=== PATIENT | male | born 1995 | race Caucasian/White ===

== ENCOUNTER 2018-01-14 21:55 | Inpatient (IN) | payer OTHER ==
[2018-01-14] MEDS ORDERED: HYDROMORPHONE HCL INJ/PF 2 MG/ML AMPULE IV PRN (22:02)
[2018-01-14] MEDS ORDERED: RINGERS SOLUTION,LACTATED 1,000 ML IV ONE (22:03)
[2018-01-14] MEDS ORDERED: CEFAZOLIN 2 GM/D5W RTU 2 GM/50 ML RTUPB IV ONE (22:03)
[2018-01-14] MEDS ORDERED: KETAMINE HCL INJ 500 MG/10 ML VIAL IV ONE ×2 (22:05→22:59)
[2018-01-14] MEDS ORDERED: METOCLOPRAMIDE HCL INJ/PF 10 MG/2 ML SDV IV ONE (22:06)
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
[2018-01-14 22:15] LABS: ABSOLUTE LYMPHOCYTES (AUTO) 2.1 10^3/uL (0.5-4.7); ABSOLUTE MONOCYTES (AUTO) 0.9 10^3/uL (0.1-1.4); ABSOLUTE NEUT (AUTO) 14.5 10^3/uL (1.7-8.2); BASOPHILS % (AUTO) 0.2 % (0-2); EOSINOPHILS % (AUTO) 0.1 % (0-6); HEMATOCRIT 43.5 % (37.9-51.0); HEMOGLOBIN 15.4 g/dL (13.5-17.0); LYMPHOCYTES % (AUTO) 11.8 % (13-45); MEAN CORPUSCULAR HEMOGLOBIN 31.9 pg (27.0-33.4); MEAN CORPUSCULAR HGB CONC 35.3 g/dL (32.0-36.0); MEAN CORPUSCULAR VOLUME 90 fl (80-97); MONOCYTES % (AUTO) 5.3 % (3-13); PLATELET COUNT 292 10^3/uL (150-450); RED BLOOD COUNT 4.82 10^6/uL (4.35-5.55); RED CELL DISTRIBUTION WIDTH 12.6 % (11.5-14.0); SEGMENTED NEUTROPHILS % (AUTO) 82.6 % (42-78); TOTAL CELLS COUNTED % (AUTO) 100 %; WHITE BLOOD COUNT 17.6 10^3/uL (4.0-10.5)
[2018-01-14 22:42] LABS: ANION GAP 19 (5-19); BLOOD UREA NITROGEN 16 mg/dL (7-20); CALCIUM 10.5 mg/dL (8.4-10.2); CARBON DIOXIDE 24 mmol/L (22-30); CHLORIDE 100 mmol/L (98-107); GLUCOSE 93 mg/dL (75-110); POTASSIUM 3.3 mmol/L (3.6-5.0)
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
[2018-01-14] MEDS ORDERED: ONDANSETRON HCL INJ/PF 4 MG/2 ML SDV IV PRN (23:07)
[2018-01-15] MEDS: OXYCODONE-ACETAMINOPHEN 5-325 MG TABLET PO PRN ×3 (01:15→18:18)
[2018-01-15] MEDS: MORPHINE SULFATE 10 MG/ML INJ IV PRN ×5 (02:34→20:17)
[2018-01-15] MEDS: RINGERS SOLUTION,LACTATED 1,000 ML IV PRN (05:35)
[2018-01-15 06:26] LABS: HEMATOCRIT 37.9 % (37.9-51.0); HEMOGLOBIN 13.5 g/dL (13.5-17.0); MEAN CORPUSCULAR HEMOGLOBIN 32.2 pg (27.0-33.4); MEAN CORPUSCULAR HGB CONC 35.6 g/dL (32.0-36.0); MEAN CORPUSCULAR VOLUME 90 fl (80-97); PLATELET COUNT 181 10^3/uL (150-450); RED BLOOD COUNT 4.19 10^6/uL (4.35-5.55); RED CELL DISTRIBUTION WIDTH 12.4 % (11.5-14.0); WHITE BLOOD COUNT 8.8 10^3/uL (4.0-10.5)
[2018-01-15 07:12] LABS: ANION GAP 10 (5-19); BLOOD UREA NITROGEN 16 mg/dL (7-20); CALCIUM 9.1 mg/dL (8.4-10.2); CARBON DIOXIDE 30 mmol/L (22-30); CHLORIDE 101 mmol/L (98-107); GLUCOSE 92 mg/dL (75-110); SODIUM 140.7 mmol/L (137-145)
[2018-01-15] MEDS ORDERED: MIDAZOLAM 2 MG/2 ML INJ ONE (07:57)
[2018-01-15] MEDS ORDERED: PROPOFOL INJ 200 MG/20 ML VIAL IV ONE (07:57)
[2018-01-15] MEDS ORDERED: ACETAMINOPHEN 1,000 MG/100 ML RTUPB IV ONE ×2 (07:57→18:50)
[2018-01-15] MEDS ORDERED: FENTANYL CITRATE INJ/PF 250 MCG/5 ML AMPULE ONE (07:57)
[2018-01-15] MEDS ORDERED: HYDROMORPHONE HCL INJ/PF 2 MG/ML AMPULE ONE ×2 (07:58→12:20)
[2018-01-15] MEDS ORDERED: CEFAZOLIN 2 GM/D5W RTU 2 GM/50 ML RTUPB IV SCH (08:00)
[2018-01-15] MEDS: CEFAZOLIN SODIUM 2 GM in NORMAL SALINE 100 ML IV SCH ×3 (08:24→20:16)
[2018-01-15] MEDS ORDERED: FENTANYL CITRATE INJ/PF 100 MCG/2 ML AMPUL ONE (08:49)
[2018-01-15] MEDS ORDERED: MORPHINE SULFATE 10 MG/ML INJ IV ONE (09:00)
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
[2018-01-15] MEDS ORDERED: CEFAZOLIN INJ 1 GM VIAL ONE (10:21)
[2018-01-15] MEDS ORDERED: OXYCODONE-ACETAMINOPHEN 5-325 MG TABLET PO PRN ×2 (11:05)
[2018-01-15] MEDS ORDERED: FENTANYL CITRATE INJ/PF 100 MCG/2 ML AMPUL IV PRN ×3 (11:05)
[2018-01-15] MEDS ORDERED: MORPHINE SULFATE 10 MG/ML INJ IV PRN (11:05)
[2018-01-15] MEDS ORDERED: MEPERIDINE HCL/PF INJ 25 MG/1 ML DISP.SYRIN IV PRN (11:05)
[2018-01-15] MEDS ORDERED: PROMETHAZINE HCL INJ 25 MG/1 ML VIAL IV PRN ×2 (11:05)
[2018-01-15] MEDS ORDERED: DIPHENHYDRAMINE HCL 50 MG/ML VIAL IV PRN (11:05)
[2018-01-15] MEDS: BUPIVACAINE HCL 0.5 % INJ/PF 30 ML SDV ONE ×2 (11:48→12:01)
[2018-01-15] MEDS ORDERED: KETOROLAC TROMETHAMINE 60 MG/2 ML SDV ONE (12:20)
[2018-01-15] MEDS ORDERED: PROMETHAZINE HCL INJ 25 MG/1 ML VIAL ONE (12:20)
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
[2018-01-15] MEDS ORDERED: ONDANSETRON 4 MG TAB.RAPDIS PO PRN (12:50)
[2018-01-15] MEDS ORDERED: MORPHINE SULFATE 10 MG/ML INJ ONE (13:10)
[2018-01-15] MEDS ORDERED: OXYCODONE-ACETAMINOPHEN 5-325 MG TABLET ONE (13:10)
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
[2018-01-15] MEDS ORDERED: SUCCINYLCHOLINE CHLORIDE INJ 200 MG/10 ML VIAL ONE (16:12)
[2018-01-15] MEDS ORDERED: DEXAMETHASONE SOD PHOSPHATE INJ 4 MG/1 ML VIAL ONE (16:12)
[2018-01-15] MEDS ORDERED: ONDANSETRON HCL INJ/PF 4 MG/2 ML SDV ONE (16:12)
[2018-01-15] MEDS: PREGABALIN 75 MG CAPSULE PO SCH (17:17)
[2018-01-15] MEDS: DIPHENHYDRAMINE HCL 50 MG/ML VIAL IV PRN (17:17)
[2018-01-15] MEDS ORDERED: OXYCODONE HCL SR 10 MG TABLET PO SCH (22:00)
[2018-01-16] MEDS: RINGERS SOLUTION,LACTATED 1,000 ML IV PRN (01:14)
[2018-01-16] MEDS: MORPHINE SULFATE 10 MG/ML INJ IV PRN ×2 (01:14→06:30)
[2018-01-16] MEDS: OXYCODONE HCL IR 5 MG TABLET PO PRN ×5 (02:37→23:08)
[2018-01-16] MEDS: CEFAZOLIN SODIUM 2 GM in NORMAL SALINE 100 ML IV SCH ×4 (02:38→22:12)
[2018-01-16] MEDS: OXYCODONE-ACETAMINOPHEN 5-325 MG TABLET PO PRN ×3 (04:21→17:20)
[2018-01-16] MEDS ORDERED: LANSOPRAZOLE 30 MG TAB.RAP.DR PO SCH (06:00)
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
--- NOTE | 2018-01-16 07:27 | EKG REPORT ---
SEVERITY:- BORDERLINE ECG - SINUS RHYTHM PROBABLE LEFT ATRIAL ABNORMALITY : Confirmed by: Armando Thomas MD 16-Jan-2018 07:26:23
[2018-01-16 07:54] LABS: HEMATOCRIT 32.1 % (37.9-51.0); MEAN CORPUSCULAR HEMOGLOBIN 31.9 pg (27.0-33.4); MEAN CORPUSCULAR HGB CONC 35.4 g/dL (32.0-36.0); MEAN CORPUSCULAR VOLUME 90 fl (80-97); PLATELET COUNT 159 10^3/uL (150-450); RED BLOOD COUNT 3.56 10^6/uL (4.35-5.55); RED CELL DISTRIBUTION WIDTH 12.4 % (11.5-14.0); WHITE BLOOD COUNT 8.3 10^3/uL (4.0-10.5)
[2018-01-16 07:58] LABS: HEMOGLOBIN 11.3 g/dL (13.5-17.0)
[2018-01-16] MEDS: PREGABALIN 75 MG CAPSULE PO SCH ×2 (09:44→17:19)
[2018-01-16] MEDS: DIPHENHYDRAMINE HCL 50 MG/ML VIAL IV PRN (09:51)
--- NOTE | 2018-01-16 12:25 | Progress Note ---
Provider Note Provider Note: Patient seen and evaluated at noontime today due to increased pain. However currently since having pain medication his pain has notably improved. He has been up and around with physical therapy on a few occasions. Left lower extremity: Dressing taken down along the anterior lateral/medial tibia exposed lower extremity. Compartments continue to be swollen but compressible no pain with passive stretch of the toes. Intact flexion extension of the toes. Cap refill less than 2 seconds. Dorsalis pedis pulse 2+ . Status post left tibial IM nail Continue to monitor patient clinically. Currently there is no sign or symptom of compartment syndrome.
[2018-01-16] MEDS ORDERED: ONDANSETRON HCL INJ/PF 4 MG/2 ML SDV IV PRN (13:30)
[2018-01-16] MEDS ORDERED: ONDANSETRON 4 MG TAB.RAPDIS PO PRN (13:30)
[2018-01-16] MEDS: RIVAROXABAN 10 MG TABLET PO SCH (16:24)
[2018-01-16] MEDS: OXYCODONE HCL SR 10 MG TABLET PO SCH (22:11)
[2018-01-16] MEDS: FENTANYL CITRATE INJ/PF 100 MCG/2 ML AMPUL IV PRN (22:18)
[2018-01-16] MEDS: KETOROLAC TROMETHAMINE INJ/PF 30 MG/1 ML SDV IV PRN (23:08)
[2018-01-17] MEDS ORDERED: BUPIVACAINE HCL 0.5%-EPI 1:200000 INJ/PF 30 ML VIAL ONE (00:10)
[2018-01-17] MEDS ORDERED: MIDAZOLAM 2 MG/2 ML INJ ONE (00:14)
[2018-01-17] MEDS ORDERED: FENTANYL CITRATE INJ/PF 250 MCG/5 ML AMPULE ONE (00:14)
[2018-01-17] MEDS ORDERED: PROPOFOL INJ 200 MG/20 ML VIAL IV ONE (00:15)
[2018-01-17] MEDS ORDERED: ACETAMINOPHEN 1,000 MG/100 ML RTUPB IV ONE (00:15)
--- NOTE | 2018-01-17 00:19 | Progress Note ---
Provider Note Provider Note: S: Patient seen and evaluated. Nurse called due to increasing pain medication requirements. Patient complaining of significantly increased pain over the past however without relief using current pain regimen. Patient describes the pain as a throbbing viselike pain with significant swelling and tightness. Patient notices tingling in the tips of the toes. O: Left lower extremity: Refill less than 2 seconds. Dorsalis pedis pulse 2+. Equivocal pain with passive stretch. Compartments swollen and firm increased compared to previous examinations. Intact flexion/extension of the toes. Hypoesthesia along the distal portion of patient's toes. A/P: Status post left IM nail tibial shaft fracture with acute clinical compartment syndrome Given patient's increased need for pain medication and examination findings such as increased palpation and firmness of the compartments there is concern for now acute compartment syndrome which is reasonable given patient's original injury. We have discussed treatment options given his clinical examination findings and the risks of missed compartment syndrome decision was made to proceed with operative intervention which includes fasciotomy left leg. Risks and benefits of the surgical procedure along with postoperative expectations including need for future surgical intervention such as closure possible skin grafting were explained to the patient, patient has verbalized understanding consented for the procedure. Specific risk of the procedure include neurovascular risk, infection, postoperative pain, postoperative stiffness, need for future surgical intervention were explained.
[2018-01-17] MEDS ORDERED: CEFAZOLIN INJ 1 GM VIAL ONE (00:54)
[2018-01-17] MEDS ORDERED: MEPERIDINE HCL/PF INJ 25 MG/1 ML DISP.SYRIN IV PRN (00:57)
[2018-01-17] MEDS ORDERED: PROMETHAZINE HCL INJ 25 MG/1 ML VIAL IV PRN ×2 (00:57)
[2018-01-17] MEDS ORDERED: DIPHENHYDRAMINE HCL 50 MG/ML VIAL IV PRN (00:57)
--- NOTE | 2018-01-17 01:48 | Operative Report ---
Operative Report DATE OF SURGERY: 01/17/18 PREOPERATIVE DIAGNOSIS: Left Tibia-Fibula Fracture. Acute Left Leg Compartment Syndrome POSTOPERATIVE DIAGNOSIS: Same OPERATION: 4 Compartment Fasciotomy w/ Placement of Wound VAC SURGEON: ELBA WREN ANESTHESIA: GA COMPLICATIONS: None ESTIMATED BLOOD LOSS: <25cc PROCEDURE: Indication for above procedure: 22-year-old male who sustained a midshaft tibia fracture. Patient underwent intramedullary nailing on 01/15/2018. Patient initially was doing well but then began having increasing pain and additional pain requirements. On physical examination patient had signs and symptoms of clinical compartment syndrome with worsening tension of the compartments. Given the clinical signs and symptoms of compartment syndrome decision was made to proceed with operative intervention. Risks and benefits were explained to the patient patient verbalized understanding consented for the procedure. Procedure In Detail: Patient was seen and evaluated in the preoperative holding area. The LEFT lower extremity was initialized and marked. Patient received 1g of Ancef IV for bacterial prophylaxis. Patient was taken back to the operative room where transferred to the operative table and placed under general anesthesia. Once they were adequately anesthetized a nonsterile tourniquet was placed on the lower extremity. A surgical team debriefing was performed ensuring all instrumentation was available, the surgical procedure was discussed with possible concerns reviewed. The upper extremity was prepped with Betadine and draped in a sterile fashion. A timeout was done identifying correct patient, procedure and extremity everyone in attendance agree with this and verbalized no concerns. The extremity was elevated the tourniquet was inflated to 300mmHg. A 10 cm skin incision was made just along the posterior portion of the fibula beginning 3 cm proximal to the lateral malleolus. Significant tension was palpated throughout the anterior, lateral and superficial posterior compartments The skin was undermined anteriorly exposing the anterior compartment and the superficial peroneal nerve identified. The anterior compartment was released longitudinally in its entirely and a proximal then distal direction. The lateral compartment was opened beginning distally at the peroneal tendons and extended proximally. The skin was then undermined posteriorly and the superficial posterior compartment was identified. The fascia of the superficial posterior compartment was released. The lateral compartment was retracted anteriorly and the posterior compartment retracted posteriorly. The interval between the soleus and FHL was visualized. The interval between the superficial and lateral compartments was identified distally the soleus attachment was released proximally and detached from the fibula to identify the FHL tendon which was confirmed with flexion extension of the toes. The FHL was then subperiosteally dissected from the posterior aspect of the fibula the FHL and the peroneal vessels were retracted in a posterior direction. With finger dissection the fascial attachment of the tibialis posterior was identified and released longitudinally at its midportion from proximal to distal and the posterior aspect of the tibia was palpated to ensure complete release of the deep posterior compartment. Any small peripheral veins were then identified and the wound was copiously irrigated with 2 L of normal saline. Muscle contractility was confirmed with a slight touch of the Bovie. There is no evidence of nonviable muscle. There was trauma noted to the FHL along the posterior fibula at the level of the fracture. Skin was prepped with Mastisol on the skin edges in the leg dried completely. I then placed a wound VAC sponge within the fasciotomy site this was then secured and the suction device placed. This was first picked up the vacuum suction to confirm adequate placement of the sponge. This was then transitioned to the wound VAC machine there is no evidence of leaking and good suction at 100 mmHg. Tourniquet was deflated patient had good peripheral perfusion with cap refill less than 2 seconds and normal skin turgor. And palpable dorsalis pedis pulse 2+. The previous surgical incisions were then dressed with Xeroform 4 x 4's and patient was placed in a well-padded posterior splint maintaining neutral of the ankle. Sponge counts, instrument counts, needle counts counts were correct. Patient was then awoken from anesthesia. Transferred from the operating room table to the operating room stretcher. There was no intraoperative complications patient tolerated procedure well stable to PACU. Postoperative plan: Plan will be return to the operating room within 48-96 hours for irrigation debridement and possible closure.
[2018-01-17] MEDS: LANSOPRAZOLE 30 MG TAB.RAP.DR PO SCH (04:44)
[2018-01-17] MEDS: CEFAZOLIN SODIUM 2 GM in NORMAL SALINE 100 ML IV SCH ×4 (06:09→23:33)
[2018-01-17 06:59] LABS: HEMATOCRIT 30.2 % (37.9-51.0); HEMOGLOBIN 10.9 g/dL (13.5-17.0); MEAN CORPUSCULAR HEMOGLOBIN 33.1 pg (27.0-33.4); MEAN CORPUSCULAR HGB CONC 36.1 g/dL (32.0-36.0); MEAN CORPUSCULAR VOLUME 92 fl (80-97); PLATELET COUNT 127 10^3/uL (150-450); RED BLOOD COUNT 3.29 10^6/uL (4.35-5.55); RED CELL DISTRIBUTION WIDTH 12.6 % (11.5-14.0); WHITE BLOOD COUNT 7.8 10^3/uL (4.0-10.5)
[2018-01-17] MEDS: KETOROLAC TROMETHAMINE INJ/PF 30 MG/1 ML SDV IV PRN ×2 (11:12→18:17)
[2018-01-17] MEDS: PREGABALIN 75 MG CAPSULE PO SCH ×2 (11:13→18:17)
[2018-01-17] MEDS: OXYCODONE HCL SR 10 MG TABLET PO SCH ×2 (11:17→21:05)
[2018-01-17] MEDS ORDERED: KETOROLAC TROMETHAMINE 60 MG/2 ML SDV ONE ×2 (11:59→12:00)
[2018-01-17] MEDS ORDERED: DEXAMETHASONE SOD PHOSPHATE INJ 4 MG/1 ML VIAL ONE ×2 (11:59→12:00)
[2018-01-17] MEDS ORDERED: SUCCINYLCHOLINE CHLORIDE INJ 200 MG/10 ML VIAL ONE ×2 (11:59→12:00)
[2018-01-17] MEDS ORDERED: ONDANSETRON HCL INJ/PF 4 MG/2 ML SDV ONE ×2 (11:59→12:00)
[2018-01-17] MEDS ORDERED: LIDOCAINE 2% INJ-PF (20 MG/ML) 2 ML AMPUL ONE ×2 (11:59→12:00)
[2018-01-17] MEDS ORDERED: METOCLOPRAMIDE HCL INJ/PF 10 MG/2 ML SDV ONE ×2 (11:59→12:00)
[2018-01-17] MEDS ORDERED: GLYCOPYRROLATE 1 MG/5 ML SYRINGE ONE (12:00)
[2018-01-17] MEDS ORDERED: ROCURONIUM BROMIDE INJ 50 MG/5 ML VIAL IV ONE (12:00)
[2018-01-17] MEDS: OXYCODONE HCL IR 5 MG TABLET PO PRN ×2 (15:07→21:05)
[2018-01-17] MEDS: RIVAROXABAN 10 MG TABLET PO SCH (18:17)
[2018-01-17] MEDS: DIPHENHYDRAMINE HCL 50 MG/ML VIAL IV PRN (18:17)
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
[2018-01-17] MEDS: FENTANYL CITRATE INJ/PF 100 MCG/2 ML AMPUL IV PRN ×2 (19:30→23:33)
[2018-01-18] MEDS: DIPHENHYDRAMINE HCL 50 MG/ML VIAL IV PRN ×2 (00:33→16:13)
[2018-01-18] MEDS: KETOROLAC TROMETHAMINE INJ/PF 30 MG/1 ML SDV IV PRN ×3 (00:35→18:29)
[2018-01-18] MEDS: LANSOPRAZOLE 30 MG TAB.RAP.DR PO SCH (04:23)
[2018-01-18] MEDS: CEFAZOLIN SODIUM 2 GM in NORMAL SALINE 100 ML IV SCH ×4 (06:14→23:32)
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
[2018-01-18] MEDS: FENTANYL CITRATE INJ/PF 100 MCG/2 ML AMPUL IV PRN ×4 (06:46→23:32)
[2018-01-18] MEDS: OXYCODONE HCL SR 10 MG TABLET PO SCH ×2 (09:26→22:33)
[2018-01-18] MEDS: PREGABALIN 75 MG CAPSULE PO SCH ×2 (09:26→18:28)
[2018-01-18] MEDS: OXYCODONE HCL IR 5 MG TABLET PO PRN ×3 (11:45→16:16)
[2018-01-18] MEDS ORDERED: RIVAROXABAN 10 MG TABLET PO ONE (19:00)
[2018-01-19] MEDS: OXYCODONE HCL IR 5 MG TABLET PO PRN ×4 (00:02→23:54)
[2018-01-19] MEDS: KETOROLAC TROMETHAMINE INJ/PF 30 MG/1 ML SDV IV PRN ×4 (00:56→23:54)
[2018-01-19] MEDS: LANSOPRAZOLE 30 MG TAB.RAP.DR PO SCH (04:31)
[2018-01-19] MEDS: CEFAZOLIN SODIUM 2 GM in NORMAL SALINE 100 ML IV SCH ×4 (06:36→23:54)
[2018-01-19] MEDS: OXYCODONE HCL SR 10 MG TABLET PO SCH ×2 (09:23→21:18)
[2018-01-19] MEDS: PREGABALIN 75 MG CAPSULE PO SCH ×2 (09:23→17:39)
[2018-01-19] MEDS: FENTANYL CITRATE INJ/PF 100 MCG/2 ML AMPUL IV PRN ×2 (14:00→21:18)
[2018-01-19] MEDS: RINGERS SOLUTION,LACTATED 1,000 ML IV PRN (23:53)
[2018-01-20] MEDS: LANSOPRAZOLE 30 MG TAB.RAP.DR PO SCH (05:02)
[2018-01-20] MEDS: CEFAZOLIN SODIUM 2 GM in NORMAL SALINE 100 ML IV SCH ×4 (05:33→23:42)
[2018-01-20] MEDS: FENTANYL CITRATE INJ/PF 100 MCG/2 ML AMPUL IV PRN ×3 (05:35→21:08)
[2018-01-20] MEDS ORDERED: METOCLOPRAMIDE HCL INJ/PF 10 MG/2 ML SDV ONE (08:12)
[2018-01-20] MEDS ORDERED: ONDANSETRON HCL INJ/PF 4 MG/2 ML SDV ONE (08:12)
[2018-01-20] MEDS ORDERED: KETOROLAC TROMETHAMINE 60 MG/2 ML SDV ONE (08:12)
[2018-01-20] MEDS ORDERED: DEXAMETHASONE SOD PHOSPHATE INJ 4 MG/1 ML VIAL ONE (08:12)
[2018-01-20] MEDS ORDERED: SUCCINYLCHOLINE CHLORIDE INJ 200 MG/10 ML VIAL ONE (08:12)
[2018-01-20] MEDS: PREGABALIN 75 MG CAPSULE PO SCH ×2 (08:51→17:25)
[2018-01-20] MEDS: OXYCODONE HCL SR 10 MG TABLET PO SCH ×2 (08:51→21:08)
[2018-01-20] MEDS: RINGERS SOLUTION,LACTATED 1,000 ML IV PRN (08:52)
[2018-01-20] MEDS ORDERED: BACITRACIN INJ 50,000 UNIT VIAL ONE (09:56)
[2018-01-20] MEDS ORDERED: LIDOCAINE 1% INJ-PF (10 MG/ML) 30 ML SDV ONE (09:56)
[2018-01-20] MEDS ORDERED: BUPIVACAINE HCL 0.5 % INJ/PF 30 ML SDV ONE (09:56)
[2018-01-20] MEDS: OXYCODONE HCL IR 5 MG TABLET PO PRN ×2 (11:42→23:43)
[2018-01-20] MEDS ORDERED: FENTANYL CITRATE INJ/PF 250 MCG/5 ML AMPULE ONE (12:37)
[2018-01-20] MEDS ORDERED: LIDOCAINE 2% INJ-PF (20 MG/ML) 10 ML AMPUL ONE (12:38)
[2018-01-20] MEDS ORDERED: PROPOFOL INJ 200 MG/20 ML VIAL IV ONE (12:38)
[2018-01-20] MEDS ORDERED: MIDAZOLAM 2 MG/2 ML INJ ONE (12:38)
[2018-01-20] MEDS ORDERED: MORPHINE SULFATE 10 MG/ML INJ IV PRN (13:24)
[2018-01-20] MEDS ORDERED: OXYCODONE-ACETAMINOPHEN 5-325 MG TABLET PO PRN ×2 (13:24)
[2018-01-20] MEDS ORDERED: DIPHENHYDRAMINE HCL 50 MG/ML VIAL IV PRN (13:24)
[2018-01-20] MEDS ORDERED: MEPERIDINE HCL/PF INJ 25 MG/1 ML DISP.SYRIN IV PRN (13:24)
[2018-01-20] MEDS ORDERED: FENTANYL CITRATE INJ/PF 100 MCG/2 ML AMPUL IV PRN ×3 (13:24)
[2018-01-20] MEDS ORDERED: PROMETHAZINE HCL INJ 25 MG/1 ML VIAL IV PRN ×2 (13:24)
[2018-01-20] MEDS ORDERED: ACETAMINOPHEN 1,000 MG/100 ML RTUPB IV ONE (14:06)
[2018-01-20] MEDS ORDERED: HYDROMORPHONE HCL INJ/PF 2 MG/ML AMPULE ONE (14:33)
--- NOTE | 2018-01-20 14:48 | Operative Report ---
Operative Report DATE OF SURGERY: 01/20/18 PREOPERATIVE DIAGNOSIS: Left Tibia-Fibula Fracture. Acute Left Leg Compartment Syndrome. Status post 4 compartment fasciotomy left leg POSTOPERATIVE DIAGNOSIS: Same OPERATION: Irrigation and excisional debridement left leg with complex closure 10 cm fasciotomy incision SURGEON: ELBA WREN ANESTHESIA: GA ESTIMATED BLOOD LOSS: <25cc PROCEDURE: Indication for above procedure: 22-year-old male who sustained a midshaft tibia fracture undergoing intramedullary nailing unfortunately patient developed compartment syndrome postoperatively and thus emergent fasciotomy was performed. Patient was placed on a wound VAC for 72 hours to allow edema control and to decrease patient's swelling. Then decision was made to proceed with operative intervention including possible closure. Risks and benefits were explained to the patient patient verbalized understanding consented for the procedure. Procedure in detail: Procedure In Detail: Patient was seen and evaluated in the preoperative holding area. The LEFT lower extremity was initialized and marked. Patient received 2g of Ancef IV for bacterial prophylaxis. Patient was taken back to the operative room where transferred to the operative table and placed under general anesthesia. Once they were adequately anesthetized a nonsterile tourniquet was placed on the upper extremity. A surgical team debriefing was performed ensuring all instrumentation was available, the surgical procedure was discussed with possible concerns reviewed. The lower extremity wound VAC was removed was prepped with Betadine and draped in a sterile fashion. A timeout was done identifying correct patient, procedure and extremity everyone in attendance agree with this and verbalized no concerns. The extremity was elevated the tourniquet was inflated to 300 mmHg. Wound was copiously irrigated with Pulsavac mixed with saline and bacitracin. Any nonviable tissue was removed there was minimal nonviable tissue with a Bovie the anterior, lateral, superficial/deep posterior compartments were tested confirming contractility. There was no evidence of muscle necrosis. With flexion-extension of the toes once again the deep posterior compartment was identified. At this point decision was made to proceed with closure. The skin anterior and posterior was undermined to allow enough excursion for closure. Once I felt adequate subcutaneous release was performed I proceeded with closure. Beginning in a distal to proximal direction subcutaneous tissues were closed with 2-0 Vicryl suture. To about the distal one third. I then began closing from proximal to distal the proximal one third. I then alternated from proximal to distal to continue to close the fasciotomy wound. Wound was then successfully closed and I proceeded with skin closure. Skin was closed with mattress and simple 2-0 nylon sutures until the wound was adequately closed. To control postoperative edema a incisional wound VAC was placed. The incision was covered with Adaptic bandage wound VAC placed and set at 100 mmHg there is good seal no evidence of leak. Previous surgical incisions were dressed with Adaptic. Patient was placed in a posterior splint. Tourniquet was deflated. Patient had good peripheral perfusion Refill less than 2 seconds with dorsalis pedis pulse 2+. Postoperative plan: Plan will be removed incisional wound VAC on 01/21/18 or 01/22/18 to be discharged home maintaining nonweightbearing in the left lower extremity.
[2018-01-20] MEDS: HYDROMORPHONE HCL INJ/PF 2 MG/ML AMPULE ONE ×2 (14:57→15:15)
[2018-01-20] MEDS ORDERED: RIVAROXABAN 10 MG TABLET PO SCH (17:00)
[2018-01-21] MEDS: FENTANYL CITRATE INJ/PF 100 MCG/2 ML AMPUL IV PRN (03:50)
[2018-01-21 05:15] LABS: HEMATOCRIT 29.8 % (37.9-51.0); HEMOGLOBIN 10.8 g/dL (13.5-17.0); MEAN CORPUSCULAR HEMOGLOBIN 32.7 pg (27.0-33.4); MEAN CORPUSCULAR HGB CONC 36.2 g/dL (32.0-36.0); MEAN CORPUSCULAR VOLUME 90 fl (80-97); PLATELET COUNT 258 10^3/uL (150-450); RED CELL DISTRIBUTION WIDTH 12.9 % (11.5-14.0); WHITE BLOOD COUNT 9.4 10^3/uL (4.0-10.5)
[2018-01-21] MEDS: LANSOPRAZOLE 30 MG TAB.RAP.DR PO SCH (05:24)
[2018-01-21] MEDS: CEFAZOLIN SODIUM 2 GM in NORMAL SALINE 100 ML IV SCH ×2 (05:30→13:58)
[2018-01-21] MEDS: OXYCODONE HCL SR 10 MG TABLET PO SCH (09:16)
[2018-01-21] MEDS: OXYCODONE HCL IR 5 MG TABLET PO PRN (12:14)
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
[2018-01-21 13:43] VITALS: BP 133/69
== END 2018-01-21 14:41 | disposition home or self-care (01) | DRG 493 ==
LOC: ER 21:55 → EH 23:25 → 5 01-15 01:00
PROVIDERS: ADMIT Orthopaedic Surgery; ATTEND Orthopaedic Surgery
PROC: 0QSH06Z Reposition Left Tibia with Intramedullary Internal Fixation Device, Open Approach (ICD-10-PCS; principal; 2018-01-15 10:00)
PROC: 0KNT0ZZ Release Left Lower Leg Muscle, Open Approach (ICD-10-PCS; 2018-01-17)
PROC: 0KNT0ZZ Release Left Lower Leg Muscle, Open Approach (ICD-10-PCS; 2018-01-17)
PROC: 0KNT0ZZ Release Left Lower Leg Muscle, Open Approach (ICD-10-PCS; 2018-01-17)
PROC: 0KNT0ZZ Release Left Lower Leg Muscle, Open Approach (ICD-10-PCS; 2018-01-17)
PROC: 0YQJXZZ Repair Left Lower Leg, External Approach (ICD-10-PCS; 2018-01-20)
PROC: 3E10X8Z Irrigation of Skin and Mucous Membranes using Irrigating Substance (ICD-10-PCS; 2018-01-20)
DX: S82.252A Displaced comminuted fracture of shaft of left tibia, initial encounter for closed fracture (principal); M79.A22 Nontraumatic compartment syndrome of left lower extremity; S82.452A Displaced comminuted fracture of shaft of left fibula, initial encounter for closed fracture; S09.90XA Unspecified injury of head, initial encounter; V86.56XA Driver of dirt bike or motor/cross bike injured in nontraffic accident, initial encounter; Y93.55 Activity, bike riding; Y92.89 Other specified places as the place of occurrence of the external cause
CPT/HCPCS: 00400; 01470; 01480; 36415; 70450; 71045; 72125; 80048; 85025; 85027; 93005; 93010; 94799; 96365; 96375; 96376; 99285; C1713; J0131; J0330; J0690; J1100; J1170; J1200; J1885; J2250; J2270; J2405; J2550; J2704; J2765; J3010; J3490; J7120